=== PATIENT | female | born 1960 | race Caucasian/White ===

== ENCOUNTER 2017-05-05 08:09 | Emergency (ER) | payer BC, OTHER ==
[~2017-05-05] VITALS: Ht 160 cm; Wt 69.1 kg
[2017-05-05] MEDS ORDERED: MOTRIN600 MG PO (10:01)
[2017-05-05] MEDS ORDERED: NORCO 5/3251 TABLET PO (10:01)
[2017-05-05] MEDS ORDERED: SKELAXIN800 MG PO (10:01)
[2017-05-05 10:59] VITALS: BP 93/67
== END 2017-05-05 11:00 | disposition home or self-care (01) ==
LOC: EME 08:09
DX: S09.90XA Unspecified injury of head, initial encounter (principal); S30.0XXA Contusion of lower back and pelvis, initial encounter; R07.81 Pleurodynia; W00.0XXA Fall on same level due to ice and snow, initial encounter
CPT/HCPCS: 70450; 71046; 72100; 99281; 99284